=== PATIENT | female | born 1975 | race Native Hawaiian/Other Pacific Islander ===

== ENCOUNTER 2022-03-02 12:33 | Emergency (ER) | payer OTHER ==
[~2022-03-02] VITALS: Ht 167.6 cm; Wt 99.8 kg
[2022-03-02 13:21] LABS: PLATELET COUNT 351 K/uL (152-353)
[2022-03-02 13:31] LABS: POTASSIUM 4.3 mmol/L (3.6-5.2)
[2022-03-02 13:46] LABS: PARTIAL THROMBOPLASTIN TIME 26.3 SECONDS (24.5-33.6)
[2022-03-02 17:45] VITALS: BP 134/89; TEMP 98.1
== END 2022-03-02 17:45 | disposition short-term general hospital (02) ==
LOC: ED 12:45
PROVIDERS: Emergency Medicine
PROC: 0T9B70Z Drainage of Bladder with Drainage Device, Via Natural or Artificial Opening (ICD-10-PCS; principal; 2022-03-02)
DX: R45.1 Restlessness and agitation (principal); F15.90 Other stimulant use, unspecified, uncomplicated
CPT/HCPCS: 51702; 80053; 80143; 80179; 80307; 80320; 81000; 81025; 82550; 84484; 85027; 85610; 85730; 96365; 96372; 96376; 99284; J2060; J3486